=== PATIENT | female | born 1980 ===

== ENCOUNTER 2023-01-08 12:48 | Day surgery (SDC) | payer BC ==
[~2023-01-08] VITALS: Ht 167.6 cm; Wt 120.8 kg
[2023-01-08] MEDS ORDERED: ABILIFY5 MG (13:31)
[2023-01-08] MEDS ORDERED: Budeprion Xl300 MG PO (13:32)
[2023-01-08] MEDS ORDERED: ESCI20 (13:33)
[2023-01-08] MEDS ORDERED: HYDHCL25 (13:33)
--- NOTE | 2023-01-08 14:39 | NUR ---
01/08/23 1439 Carlotta Santana RN CLARIFIED ORDER FOR ANCEF 2G D/T PT WEIGHING 120.8KG, PER DR. DE JESUS WE WILL STICK WITH ORIGINAL ORDER OF ANCEF 2G
--- NOTE | 2023-01-08 15:19 | NUR ---
01/08/23 1519 Beronica Mcintyre 30ML OF ROPIVACAINE 0.5% MIXED AND VERIFIED WITH 0.15ML OF EPI (1MG/ML) TO MAKE 30ML OF ROPIVACAINE 0.5% WITH EPI 1:200,000 FOR INJECTION AT THE OPSITE BY DR DE JESUS.
[2023-01-08 16:33] VITALS: BP 110/80
--- NOTE | 2023-01-08 16:51 | NUR ---
[facility]23 [facility]
--- NOTE | 2023-01-08 17:07 | NUR ---
01/08/23 1707 Ama Roth LATE ENTRY: WHILE IN PACU DR VILLALOBOS ADMINISTERED 2 DOSES OF 25 MCG FENTANYL IV, ONE DOSE AT 1607 AND ONE DOSE AT 1616. DR VILLALOBOS HAD OPENED THE IV FLUIDS TO FLUSH THESE MEDICATIONS IN DURING THIS TIME SO PATIENT RECEIVED MORE FLUIDS IN PACU THAN WOULD BE ADMINISTERED BY A TKO RATE. FOLLOWING THIS, PATIENT IV KEPT AT "TO KEEP VEIN OPEN" RATE IN CASE MORE MEDICATIONS WERE WARRANTED. PATIENT DISCHARGED WITH PAIN / AND A REMAINDER OF 400ML IN FLUID BAG.
== END 2023-01-08 16:54 | disposition home or self-care (01) ==
LOC: ORSCSDS 12:48
PROVIDERS: Podiatrist Foot & Ankle Surgery
PROC: 0SGN04Z Fusion of Left Metatarsal-Phalangeal Joint with Internal Fixation Device, Open Approach (ICD-10-PCS; principal; 2023-01-08 14:00)
DX: M20.22 Hallux rigidus, left foot (principal); I10 Essential (primary) hypertension; E66.2 Morbid (severe) obesity with alveolar hypoventilation; Z68.41 Body mass index [BMI] 40.0-44.9, adult; F31.9 Bipolar disorder, unspecified; F41.8 Other specified anxiety disorders; F32.A Depression, unspecified; Z79.899 Other long term (current) drug therapy
CPT/HCPCS: A9270; C1713; J0171; J0690; J1100; J2250; J2405; J2704; J2795; J3010; J7120